=== PATIENT | female | born 1985 | race African-American/Black ===

== ENCOUNTER 2024-07-30 10:44 | Emergency (ER) | payer MEDICAID ==
[~2024-07-30] VITALS: Ht 165.1 cm; Wt 102.3 kg
[~2024-07-30 10:44] MED LIST: FAMO-128 PO; FAMO40TA73 PO; NO HOME MEDS
--- NOTE | 2024-07-30 11:37 | Physician Documentation ---
History of Present Illness ~ Stated Complaint: 5149 Time Seen by MD: 11:20 OK to notify your PCP?: Yes Primary Medical Doctor: MELO Source: patient Mode of Arrival: EMS Exam Limitations: clinical condition HPI 38-year-old female with schizophrenia not taking medications presenting to ER on 515 due to being gravely disabled. Reportedly was urinating on sidewalk and scrubbing eyes with soap. mission manager was called and evaluated patient at scene per 5149 report and had patient transferred by ambulance here due to being gravely disabled. Patient denies any illicit drug use or prescription use. Unable to get history as patient does not answer questions she just rambles about her sleep apnea, needing blood work, and having "disassociative disorder." Medication Reconciliation Allergies: Coded Allergies: No Known Allergies (Unverified , 07/30/24) Scheduled Famotidine (Pepcid), 1 TABLET PO DAILY Famotidine (Pepcid), 1 TABLET PO BID Miscellaneous Medications Home Med List (No Home Medications), (Reported) Past Medical History Past Medical History: Asthma, Hepatitis C, Anxiety, Bipolar, Depression, Schizophrenia Past Surgical History: noncontributory Other Past Family History: NONE Alcohol Use: None Drug Use: marijuana, methamphetamine Lives In: Homeless Occupation: disabled Review of Systems All Other Systems at this time: Reviewed and Negative Physical Exam Physical Exam GENERAL: Alert, no acute distress. HEENT: NCAT, EOMI, PERRL, normal oropharynx, moist oral mucosa. NECK: Supple, trachea midline. CARDIAC: Regular rate and rhythm, no murmurs, rubs, or gallops. PV: Equal distal pulses. No lower extremity edema, cap refill less than 2 seconds. RESPIRATORY: Equal breath sounds, clear to auscultation bilaterally, no respiratory distress. GASTROINTESTINAL: Non distended, soft, nontender, No guarding or rebound. MUSCULOSKELETAL: Normal range of motion, nontender, no swelling. Normal gait. NEUROLOGICAL: Awake, alert, ORIENTED TO PERSON AND PLACE, NOT ORIENTED TO TIME. SKIN: Warm/dry, no pallor, no rash. PSYCH: Alert, SPEECH IS PRESSURED, PATIENT'S THOUGHT PROCESS IS TANGENTIAL AND I AM UNABLE TO FOLLOW HER STORY A RESULT. Progress Results/Orders Results/Orders Orders - PATRICIO WATTS Cbc/Diff (07/30/24 11:28) Urinalysis (07/30/24 11:28) Hcg, Ur Ql (07/30/24 11:28) Drug Screen, Urine (07/30/24 11:28) Ethanol (07/30/24 11:28) TSH (07/30/24 11:28) Med Rec (07/30/24 11:28) 1799.11 (07/30/24 11:28) BMP (07/30/24 11:28) Close Observation Level (07/30/24 11:28) Covid19 Binax Poc Result Entry (07/30/24 11:28) Regular Diet (07/30/24 Dinner) Ed Im Psych Medications (07/30/24 11:40) Close Observation Level (07/30/24 11:40) Completed Orders - PATRICIO WATTS Lorazepam Inj (Ativan Inj) (07/30/24 11:40) Diphenhydramine Inj (Benadryl Inj.) (07/30/24 11:40) Haloperidol Lact. (Haldol) (07/30/24 11:40) Medications Received in ER Medications (Trade) Dose Ordered Sig/Mayela Route PRN Reason Start Time Stop Time Status Last Admin Dose Admin (Ativan inj) 2 mg ONCE ONCE IM 07/30/24 11:40 07/30/24 11:42 DC 07/30/24 11:57 2 MG (Benadryl inj.) 50 mg ONCE ONCE IM 07/30/24 11:40 07/30/24 11:42 DC 07/30/24 11:57 50 MG (Haldol) 5 mg ONCE ONCE IM 07/30/24 11:40 07/30/24 11:42 DC 07/30/24 11:57 5 MG Vital Signs 07/30/24 11:18 Temp 98.8 Pulse 107 Resp 20 B/P (MAP) 120/82 Pulse Ox 98 Laboratory Tests Test 07/30/24 11:37 CBC Comment Chemistry Comments Medical Decision Making Differential Dx:Considerations: Include: Alcohol abuse, Anxiety, Bipolar disorder, Conversion disorder, Depression, Encephaloathy, Homicidal, Panic disorder, Personality disorder, Schizophrenia, Substance abuse, Suicidal Departure Time of Disposition: 11:38 Disposition: 01 HOME / SELF CARE / HOMELESS Impression: Primary Impression: Schizophrenia Qualified Codes: F20.9 - Schizophrenia, unspecified Additional Impressions: 5150 Gravely disabled Referrals: NO PRIMARY CARE PROVIDER (PCP) Education Educated: Patient Educated regarding: diagnosis, treatment, need for follow up Signature Scribe Signature: X Attestation: PATRICIO HERRERA July 30, 2024 11:37
[2024-07-30 11:56] LABS: BASOPHILS # (AUTO) 0.1 X10'3 (0-0.2); BASOPHILS % (AUTO) 0.4 % (0-1); EOSINOPHILS # (AUTO) 0.2 X10'3 (0-0.9); EOSINOPHILS % (AUTO) 1.4 % (0-6); HEMOGLOBIN 12.7 g/dl (12.0-16.0); LYMPHOCYTES # (AUTO) 3.8 X10'3 (1.1-4.8); LYMPHOCYTES % (AUTO) 25.5 % (21-51); MEAN CORPUSCULAR HGB CONC 33.5 g/dL (33.0-36.5); MEAN CORPUSCULAR VOLUME 65.5 FL (78-98); MEAN PLATELET VOLUME 7.3 FL (7.4-10.4); MONOCYTES # (AUTO) 0.9 X10'3 (0-0.9); MONOCYTES % (AUTO) 5.9 % (2-12); NEUTROPHILS # (AUTO) 9.9 X10'3 (1.8-7.7); NEUTROPHILS % (AUTO) 66.8 % (42-75); PLATELET COUNT 388 X10'3 (140-440); RED CELL DISTRIBUTION WIDTH 18.7 % (11.5-14.5); WHITE BLOOD COUNT 14.8 X10'3 (4.5-11.0)
[2024-07-30] MEDS: LORazepam 2 mg/ml vial IM ONE (11:57)
[2024-07-30] MEDS: haloperidol lactate 5mg/ml inj IM ONE (11:57)
[2024-07-30] MEDS: diphenhydrAMINE 50 mg/ml inj IM ONE (11:57)
[2024-07-30 12:08] LABS: ALBUMIN 3.6 G/DL (3.4-5.0); ANION GAP 9 (8-16); BLOOD UREA NITROGEN 9 MG/DL (7-18); BUN/CREATININE RATIO 10.3 (10.0-20.0); CALCIUM 8.8 MG/DL (8.5-10.1); CHLORIDE 105 MMOL/L (99-107); CREATININE 0.87 MG/DL (0.40-0.90); ETHANOL < 10 MG/DL (<10); GLUCOSE 135 MG/DL (70-104); POTASSIUM 3.5 MMOL/L (3.5-5.1); SODIUM 142 MMOL/L (135-145); THYROID STIMULATING HORMONE 1.72 ulU/ml (0.34-4.50); TOTAL CARBON DIOXIDE 28.2 MMOL/L (24-32); eCRCL 78 ML/MIN; eGFR 88 ML/MIN
[2024-07-30 12:26] LABS: ANISOCYTOSIS 2+; HYPOCHROMASIA 1+; MICROCYTOSIS 2+; PLATELET ESTIMATE NORMAL; STOMATOCYTES FEW; TARGET CELLS FEW
[2024-07-30 18:41] LABS: URINE HCG NEGATIVE (NEG)
--- NOTE | 2024-07-30 18:59 | Physician Documentation ---
History of Present Illness ~ Chief Complaint: 5149 Stated Complaint: 5149 Time Seen by MD: 18:51 Primary Medical Doctor: MELO Source: patient Mode of Arrival: EMS Exam Limitations: clinical condition HPI 38-year-old female with schizophrenia not taking medications presenting to ER on 515 due to being gravely disabled. Reportedly was urinating on sidewalk and scrubbing eyes with soap. sales strategy manager was called and evaluated patient at [facility] per 5149 report and had patient transferred by ambulance here due to being gravely disabled. Patient denies any illicit drug use or prescription use. Unable to get history as patient does not answer questions she just rambles about her sleep apnea, needing blood work, and having "disassociative disorder." Medication Reconciliation Allergies: Coded Allergies: No Known Allergies (Unverified , 07/30/24) Scheduled Famotidine (Pepcid), 1 TABLET PO DAILY Famotidine (Pepcid), 1 TABLET PO BID Miscellaneous Medications Home Med List (No Home Medications), (Reported) Past Medical History Past Medical History: Asthma, Hepatitis C, Anxiety, Bipolar, Depression, Schizophrenia Past Surgical History: noncontributory Other Past Family History: NONE Alcohol Use: None Drug Use: marijuana, methamphetamine Lives In: Homeless Occupation: disabled Review of Systems Constitutional: Denies: chills, fever, weakness Eyes: Denies: pain, blurred vision ENT: Denies: ear pain, nose pain, throat pain, mouth pain Respiratory: Denies: cough, shortness of breath Cardiovascular: Denies: chest pain, palpitations Gastrointestinal: Denies: abdominal pain, nausea, vomiting Genitourinary: Denies: burning, dysuria Female Genitalia: Denies: vaginal discharge, pelvic pain Neurological: Denies: headache, dizziness Musculoskeletal: Denies: pain, swelling Integumentary: Denies: rash, lesions Allergic/Immunologic: Denies: hives, itching Hematologic/Lymphatic: Denies: no symptoms reported Psychiatric: Denies: depression, anxiety Physical Exam Vital Signs: Temperature: 98.8, Source: Oral, Heart Rate: 107, Respiratory Rate: 16, BP: 120/82, Pulse Oximetry: 98, Weight: 102.300 Physical Exam General: Awake, no acute distress. HEENT: Conjunctiva pink, Sclera clear, Mucus Membranes moist. Neck: Supple without masses and tenderness. Resp: Unlabored. Lungs clear to auscultation bilaterally. Heart: Regular Rate and rhythm, normal S1 and S2 without murmur, rub or gallop. Abdomen: Soft and non tender no organomegaly Extremities: No cyanosis,clubbing or edema. Skin: Warm and Dry. Progress Results/Orders Results/Orders Medications Received in ER Medications (Trade) Dose Ordered Sig/Mayela Route PRN Reason Start Time Stop Time Status Last Admin Dose Admin (Ativan inj) 2 mg ONCE ONCE IM 07/30/24 11:40 07/30/24 11:42 DC 07/30/24 11:57 2 MG (Benadryl inj.) 50 mg ONCE ONCE IM 07/30/24 11:40 07/30/24 11:42 DC 07/30/24 11:57 50 MG (Haldol) 5 mg ONCE ONCE IM 07/30/24 11:40 07/30/24 11:42 DC 07/30/24 11:57 5 MG Vital Signs 07/30/24 07/30/24 11:18 12:05 Temp 98.8 Pulse 107 Resp 20 16 B/P (MAP) 120/82 Pulse Ox 98 Laboratory Tests Test 07/30/24 11:37 07/30/24 13:00 07/30/24 18:27 White Blood Count 14.8 H Red Blood Count 5.80 H Hemoglobin 12.7 Hematocrit 38.0 Mean Corpuscular Volume 65.5 L Mean Corpuscular Hemoglobin 22.0 L Mean Corpuscular Hemoglobin Concent 33.5 Red Cell Distribution Width 18.7 H Platelet Count 388 Mean Platelet Volume 7.3 L Neutrophils (%) (Auto) 66.8 Lymphocytes (%) (Auto) 25.5 Monocytes (%) (Auto) 5.9 Eosinophils (%) (Auto) 1.4 Basophils (%) (Auto) 0.4 Neutrophils # (Auto) 9.9 H Lymphocytes # (Auto) 3.8 Monocytes # (Auto) 0.9 Eosinophils # (Auto) 0.2 Basophils # (Auto) 0.1 CBC Comment Platelet Estimate Normal Red Blood Cell Morphology Perf Hypochromasia 1+ Basophilic Stippling Anisocytosis 2+ Microcytosis 2+ Target Cells Few Stomatocytes Few Sodium Level 142 Potassium Level 3.5 Chloride Level 105 Carbon Dioxide Level 28.2 Anion Gap 9 Blood Urea Nitrogen 9 Creatinine 0.87 Estimated GFR/1.73 m2 88 BUN/Creatinine Ratio 10.3 Glucose Level 135 H Calcium Level 8.8 Albumin 3.6 Thyroid Stimulating Hormone (TSH) 1.72 Chemistry Comments Ethyl Alcohol Level < 10 SARS-CoV-2 Antigen (Rapid) Negative Urine HCG, Qualitative Negative Urine Comment Drug Screen Comment Medical Decision Making Findings 38-year-old female with schizophrenia not taking medications presenting to ER on 5150 due to being gravely disabled. Reportedly was urinating on sidewalk and scrubbing eyes with soap. sales strategy manager was called and evaluated patient at scene per 5150 report and had patient transferred by ambulance here due to being gravely disabled. Patient denies any illicit drug use or prescription use. Unable to get history as patient does not answer questions she just rambles about her sleep apnea, needing blood work, and having "disassociative disorder." Patient is medically cleared for psych evaluation. Differential Dx:Considerations: Include: Alcohol abuse, Anxiety, Bipolar disorder, Conversion disorder, Depression, Encephaloathy, Homicidal, Panic disorder, Personality disorder, Schizophrenia, Substance abuse, Suicidal Departure Time of Disposition: 11:38 Disposition: 30 STILL A PATIENT Impression: Primary Impression: Schizophrenia Qualified Codes: F20.9 - Schizophrenia, unspecified Additional Impressions: 5150 Gravely disabled Condition: Stable Additional Instructions: Transfer orders for [facility]: At this time there is no evidence of an emergent medical condition that would preclude (admission/transfer) to a psychiatric unit via [facility] protocol for further psychiatric, as well as medical evaluation and treatment. At this time I have no reason to believe that transfer via [facility] protocol would have serious medical compromise in the patient's health. Patient is medically cleared for psych evaluation. Referrals: NO PRIMARY CARE PROVIDER (PCP) Signature Scribe Signature: No scribe Attestation: No scribe LEONARDO CHEUNG PAC July 30, 2024 18:59
[2024-07-30 19:00] LABS: URINE AMPHETAMINE SCREEN POSITIVE (Neg); URINE BARBITUATE SCREEN NEGATIVE (Neg); URINE BENZODIAZEPINES SCREEN NEGATIVE (Neg); URINE CANNABINOID SCREEN NEGATIVE (Neg); URINE COCAINE SCREEN NEGATIVE (Neg); URINE METHADONE SCREEN NEGATIVE (Neg); URINE OPIATE SCREEN NEGATIVE (Neg); URINE PHENCYCLIDINE SCREEN NEGATIVE (Neg)
[2024-07-30 19:03] LABS: BILIRUBIN,URINE NEGATIVE (Neg); CLARITY,URINE CLEAR (Clear); COLOR,URINE YELLOW (Yellow); GLUCOSE, URINE NEGATIVE (Neg); KETONES,URINE NEGATIVE (Neg); LEUKOCYTE ESTERASE ,URINE SMALL (Neg); NITRITES, URINE NEGATIVE (Neg); OCCULT BLOOD,URINE NEGATIVE (Neg); PROTEIN,URINE NEGATIVE (Neg); UROBILINOGEN,URINE 0.2 E.U/dL (0.2-1.0)
[2024-07-30 19:07] LABS: UA COLLECTION TYPE NON-SPECIFIED
[2024-07-30 19:12] LABS: RBC,URINE NONE SEEN /HPF (0-2); WBC,URINE 20-30 /HPF (0-4)
[2024-07-30 19:13] LABS: BACTERIA,URINE 2+ /HPF (Neg); SQUAMOUS EPITHELIAL CELL,UR MODERATE /LPF (FEW)
[2024-07-30] MEDS: sulfamethoxazole/trimethoprim DS (800/160mg) tablet PO SCH (20:00)
[2024-07-31] MEDS ORDERED: SULF1TAB49 PO (15:46)
[2024-07-31] MEDS: sulfamethoxazole/trimethoprim DS (800/160mg) tablet PO STA (17:50)
[2024-07-31 19:30] VITALS: TEMP 98.1
[2024-08-01 07:22] VITALS: BP 117/74; PULSE 78; RESP 16; O2SAT 99
== END 2024-08-01 07:26 | disposition still patient (30) ==
LOC: ER 10:45
DX: F20.9 Schizophrenia, unspecified (principal); J45.909 Unspecified asthma, uncomplicated; F41.9 Anxiety disorder, unspecified; F32.A Depression, unspecified; F12.90 Cannabis use, unspecified, uncomplicated; F15.90 Other stimulant use, unspecified, uncomplicated; Z59.00 Homelessness unspecified; Z20.822 Contact with and (suspected) exposure to COVID-19
CPT/HCPCS: 36415; 80048; 80305; 80320; 81001; 81025; 84443; 85008; 85025; 87811; 96372; 99285; J1200; J1630; J2060